=== PATIENT | male | born 1945 | race Caucasian/White ===

== ENCOUNTER 2021-05-22 03:13 | Inpatient (IN) ==
[2021-05-22] MEDS ORDERED: methylPREDNISolone 125 mg 2 ML VIAL IV ONE (03:22)
[2021-05-22] MEDS ORDERED: Albuterol/Ipratropium NEB.SOL (2.5/0.5 MG) 3 ML NEB.SOLN INH ONE (03:22)
[2021-05-22 03:51] LABS: Hematocrit 50 % (42-52); Hemoglobin 16.6 g/dL (14.0-18.0); Mean Corpuscular HGB Conc 33 g/dL (31-36); Mean Corpuscular Hemoglobin 32 pg (27-31); Mean Corpuscular Volume 96 fL (80-94); Mean Platelet Volume 7.2 fL (7.4-10.4); Platelet Count 254 10^3/uL (150-450); Red Blood Count 5.21 10^6 /uL (4.18-5.48); Red Cell Distribution Width 15 % (10-15)
[2021-05-22 04:12] LABS: ALT 23 U/L (7-52); AST 29 U/L (13-39); Albumin 4.4 g/dL (3.2-5.2); Albumin/Globulin Ratio 1.5 (1-3); Alkaline Phosphatase 49 U/L (35-149); Anion Gap 11 mmol/L (2-11); Blood Urea Nitrogen 30 mg/dL (6-24); C Reactive Protein 15.55 mg/L (<8.01); CO2 Carbon Dioxide 23 mmol/L (22-32); Calcium 9.4 mg/dL (8.6-10.3); Chloride 102 mmol/L (101-111); Globulin 2.9 g/dL (2-4); Glucose 129 mg/dL (70-100); Potassium 3.7 mmol/L (3.5-5.0); Sodium 136 mmol/L (135-145); Total Protein 7.3 g/dL (6.4-8.9); eGFR CKD-EPI 70.1 (>60)
[2021-05-22 04:16] LABS: Troponin I 0.03 ng/mL (<0.03)
[2021-05-22 04:41] LABS: Activated Partial Thrombo Time 22.8 seconds (26.0-38.0); INR 1.12 (0.86-1.15)
[2021-05-22] MEDS ORDERED: diPHENhydraMINE IV 50 MG/ML 1 ml VIAL (BENADRYL) ONE ×2 (04:44→07:22)
[2021-05-22] MEDS ORDERED: diPHENhydraMINE IV 50 MG/ML 1 ml VIAL (BENADRYL) IV ONE (04:51)
[2021-05-22] MEDS ORDERED: Vancomycin 1,250 MG in NS 0.9% 250 ml 250 ML IVPB ONE (05:52)
[2021-05-22] MEDS ORDERED: Cefepime 2 GM in Dextrose 2 GM/50 ML BAG IV ONE (05:52)
[2021-05-22] MEDS ORDERED: Iohexol 300 (CONTRAST) 10 ML SDV IV ONE (06:24)
[2021-05-22] MEDS ORDERED: Ondansetron 4 mg VIAL 2 MG/ML 2 ml VIAL IV PRN (06:39)
[2021-05-22] MEDS ORDERED: Famotidine IV 10 MG/ML 2 ml VIAL (20 mg) IV SLOW PU ONE (06:41)
[2021-05-22] MEDS ORDERED: Piperacillin/Tazobac ADVAN 3.375 GM in NS 0.9% 100 ml BAG 100 ML IV ONE (06:42)
[2021-05-22] MEDS ORDERED: Enoxaparin 40 MG/0.4 ML SYR SUBCUT SCH (07:00)
[2021-05-22] MEDS ORDERED: Vancomycin per Pharmacy 1 EA NOTE FOLLOW UP SCH (07:00)
[2021-05-22] MEDS ORDERED: metroNIDAZOLE IV 500 MG/100ML 500 MG/100 ML BAG IVPB SCH (07:00)
[2021-05-22] MEDS ORDERED: Zosyn per Pharmacy NOTE FOLLOW UP SCH (07:00)
[2021-05-22 07:15] LABS: Troponin I 0.03 ng/mL (<0.03)
[2021-05-22] MEDS ORDERED: Rocuronium 50 mg VIAL 10 mg/ml 5 ml VIAL (50 mg) ONE (07:20)
[2021-05-22] MEDS ORDERED: Succinylcholine 200 mg VIAL 20 mg/ml 10 ml VIAL (200 mg) ONE (07:20)
[2021-05-22 07:35] LABS: TSH Ultra Thyroid Stim Horm 4.18 mcIU/mL (0.34-5.60)
[2021-05-22] MEDS ORDERED: EPINEPHrine,Rac 2.25% NEB.SOL 0.5 ML ONE (07:37)
[2021-05-22] MEDS ORDERED: EPINEPHrine,Rac 2.25% NEB.SOL 0.5 ML INH ONE ×2 (07:48→08:48)
[2021-05-22] MEDS ORDERED: Dexamethasone IV 10 MG in NS 0.9% 50 ML 50 ML IVPB ONE (07:58)
[2021-05-22] MEDS ORDERED: Azithromycin 500 mg/250 ml NS 500 MG/250 ML BAG IVPB SCH (08:00)
[2021-05-22 08:08] LABS: PCO2 Arterial 31 mmHg (35-45); PO2 Arterial 87 mmHg (80-100)
[2021-05-22] MEDS ORDERED: NS 0.9% 250 ml 250 ML ONE ×2 (08:14→10:04)
[2021-05-22] MEDS ORDERED: Pantoprazole VIAL 40 MG VIAL IV SCH (09:00)
[2021-05-22] MEDS ORDERED: Mometasone/Formoter 200/5 MDI INH SCH (09:00)
[2021-05-22] MEDS ORDERED: DOXYcycline 100 MG in NS 0.9% 250 ml 250 ML IVPB SCH (09:00)
[2021-05-22] MEDS ORDERED: SPIRIVA Respimat (tiotropium) 2.5 mcg/inh Inhaler INH SCH (09:00)
[2021-05-22 09:08] LABS: ABS Eosinophils 0.1 10^3/ul (0-0.6); ABS Lymphocytes 2.1 10^3/ul (1.0-4.8); ABS Monocytes 1.7 10^3/ul (0-0.8); ABS Neutrophils 17.1 10^3/ul (1.5-7.7); Eosinophil % 0.3 %; Lymphocyte % 10.2 %
[2021-05-22 09:24] LABS: Magnesium 2.3 mg/dL (1.9-2.7)
[2021-05-22] MEDS ORDERED: ZOSYN 3.375 GM Q8H per EXTENDED INFUSION IV SCH (12:30)
[2021-05-22 13:26] LABS: Urine Appearance Clear; Urine Bilirubin Negative (Negative); Urine Blood Negative (Negative); Urine Color Yellow; Urine Glucose 3+(>=500 mg/dL) (Negative); Urine Ketones 1+ (Negative); Urine Nitrite Negative (Negative); Urine Protein 2+(100 mg/dL) (Negative); Urine Specific Gravity 1.044 (1.002-1.030); Urine Urobilinogen Negative (Negative)
[2021-05-22 13:29] LABS: Urine Amorphous Crystals Present (Absent); Urine Bacteria 1+ (Absent); Urine Red Blood Cell 3+(>10/hpf) (Absent); Urine Squamous Epithelial Cell Present (Absent); Urine White Blood Cell Trace(0-5/hpf) (Absent)
[2021-05-22] MEDS ORDERED: cefTRIAXone 1 gm/50 mL NS BAG 1 GM/50 ML BAG IVPB SCH (14:00)
[2021-05-22] MEDS ORDERED: Albuterol/Ipratropium NEB.SOL (2.5/0.5 MG) 3 ML NEB.SOLN INH SCH (15:00)
[2021-05-22] MEDS ORDERED: Vancomycin 750 MG in NS 0.9% 250 ML IVPB SCH (16:00)
[2021-05-22 16:41] VITALS: BP 138/89
== END 2021-05-22 16:01 | disposition short-term general hospital (02) | DRG 199 ==
LOC: ED 03:13 → EDHOLD 06:39 → ICU 09:28 → EDHOLD 16:00
PROVIDERS: ADMIT Internal Medicine; ATTEND Internal Medicine